=== PATIENT | female | born 1995 | race Hispanic/Latino ===

== ENCOUNTER 2020-01-20 00:36 | Emergency (ER) | payer SELFPAY ==
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
[2020-01-20] MEDS: DIPHtheria,PERTUSSIS(ACELL),TETANUS VACCINE/PF 0.5 ML VIAL IM ONE ×3 (02:37→02:47)
[2020-01-20] MEDS ORDERED: IBUPROFEN 600 MG TAB PO ONE (02:42)
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
[2020-01-20 04:09] VITALS: BP 128/72
== END 2020-01-20 03:55 ==
LOC: ED 00:36
DX: S01.81XA Laceration without foreign body of other part of head, initial encounter (principal); S09.90XA Unspecified injury of head, initial encounter; S09.93XA Unspecified injury of face, initial encounter; R07.81 Pleurodynia; F17.200 Nicotine dependence, unspecified, uncomplicated; F15.90 Other stimulant use, unspecified, uncomplicated; F12.90 Cannabis use, unspecified, uncomplicated; F14.90 Cocaine use, unspecified, uncomplicated; Z79.899 Other long term (current) drug therapy; Z87.442 Personal history of urinary calculi; Z00.8 Encounter for other general examination; Y04.8XXA Assault by other bodily force, initial encounter; Y93.89 Activity, other specified; Y92.89 Other specified places as the place of occurrence of the external cause; Y99.8 Other external cause status
CPT/HCPCS: 70450; 70486; 71045; 72125; 90471; 90715